=== PATIENT | female | born 1980 | race Hispanic/Latino ===

== ENCOUNTER → 2022-08-06 | Day surgery (SDC) | payer OTHER ==
[2022-08-04 09:14] LABS: BASOPHILS # (AUTO) 0.1 (0.0-0.1); BASOPHILS % 0.9 % (0.0-1.0); EOSINOPHILS # (AUTO) 0.2 (0.0-0.4); HEMOGLOBIN 9.3 g/dL (12.0-16.0); LYMPHOCYTES # (AUTO) 1.6 (1.0-3.2); LYMPHOCYTES % 27.6 % (18.0-39.1); MEAN CORPUSCULAR HEMOGLOBIN 21.7 pg (28-32); MEAN CORPUSCULAR HGB CONC 28.2 g/dL (31-35); MEAN CORPUSCULAR VOLUME 76.9 fL (81-99); MONOCYTES # (AUTO) 0.4 (0.2-0.8); MONOCYTES % 6.5 % (4.4-11.3); NEUTROPHILS # (AUTO) 3.5 (2.1-6.9); NEUTROPHILS % 60.7 % (38.7-80.0); PLATELET COUNT 233 x10e3/uL (140-360); RED BLOOD COUNT 4.29 x10e6/uL (3.6-5.1); RED CELL DISTRIBUTION WIDTH 15.2 % (11.7-14.4)
[2022-08-04 09:30] LABS: ANION GAP 13.1 mmol/L (8-16); CALCIUM 9.1 mg/dL (8.4-10.2); CREATININE, SERUM 0.64 mg/dL (0.57-1.11); POTASSIUM 4.1 mmol/L (3.5-5.1)
[~2022-08-06] MED LIST: ATROPINE SULFATE 1 MG/ML VIAL ONE; BUPIVACAINE 0.25% 30ML SDV ONE; DEXAMETHASONE SOD PHOS INJ 4 MG/ML SDV ONE; FENTANYL CITRATE/PF 100MCG/2 ML INJ ONE; GLYCOPYRROLATE INJ 0.2 MG/ML VIAL ONE; KETAMINE HCL INJ 50 MG/ML 10 ML VIAL ONE; LIDOCAINE HCL 2% LOCAL INJ 5 ML SDV VIAL INJ ONE; LIDOCAINE HCL/EPINEPHRINE/PF 10 ML VIAL ONE; MIDAZOLAM HCL 2 MG/2 ML VIAL ONE; MULTI-VITAMIN1 EACH PO; ONDANSETRON HCL INJ 2MG/ML 2ML 2 MG/ML VIAL ONE; POVIDONE IODINE 0.05% 0.05 % ML PO ONE; PROPOFOL IV EMULSION 10 MG/ML 20 ML VIAL ONE; PROPOFOL IV EMULSION 50 ML IV ONE; ROCURONIUM BROMIDE 10 MG/ML 5ML VIAL IV ONE; SEVOFLURANE INHAL SOLN 250 ML PEN BTL ONE
[2022-08-06 10:55] VITALS: BP 133/65
== END | disposition home or self-care (01) ==
LOC: OR 07:48
PROVIDERS: ATTEND Surgery
DX: K40.90 Unilateral inguinal hernia, without obstruction or gangrene, not specified as recurrent (principal); D17.79 Benign lipomatous neoplasm of other sites; Z01.810 Encounter for preprocedural cardiovascular examination; Z01.812 Encounter for preprocedural laboratory examination
CPT/HCPCS: 36415; 49505; 80048; 81025; 85025; 88302; 93005; C1781; J0461; J1100; J2001; J2250; J2405; J2704 ×2; J3010

== ENCOUNTER 2025-06-06 15:20 | Inpatient (IN) | payer OTHER ==
[~2025-06-06] VITALS: Ht 154.9 cm; Wt 83.9 kg
[2025-06-06] VITALS (9 sets, daily range): BP systolic 112–148; BP diastolic 67–86; PULSE 63–85; RESP 16–19; TEMP 97.9–98.9; O2SAT 100
[~2025-06-06 15:20] MED LIST changes: -ATROPINE SULFATE 1 MG/ML VIAL ONE; -BUPIVACAINE 0.25% 30ML SDV ONE; -DEXAMETHASONE SOD PHOS INJ 4 MG/ML SDV ONE; -FENTANYL CITRATE/PF 100MCG/2 ML INJ ONE; -GLYCOPYRROLATE INJ 0.2 MG/ML VIAL ONE; -KETAMINE HCL INJ 50 MG/ML 10 ML VIAL ONE; -LIDOCAINE HCL 2% LOCAL INJ 5 ML SDV VIAL INJ ONE; -LIDOCAINE HCL/EPINEPHRINE/PF 10 ML VIAL ONE; -MIDAZOLAM HCL 2 MG/2 ML VIAL ONE; -ONDANSETRON HCL INJ 2MG/ML 2ML 2 MG/ML VIAL ONE; -POVIDONE IODINE 0.05% 0.05 % ML PO ONE; -PROPOFOL IV EMULSION 10 MG/ML 20 ML VIAL ONE; -PROPOFOL IV EMULSION 50 ML IV ONE; -ROCURONIUM BROMIDE 10 MG/ML 5ML VIAL IV ONE; -SEVOFLURANE INHAL SOLN 250 ML PEN BTL ONE
[2025-06-06 16:22] LABS: BASOPHILS % 0.7 % (0.0-1.0); EOSINOPHILS % 3.1 % (0.0-6.0); LYMPHOCYTES % 20.4 % (18.0-39.1); MONOCYTES % 5.8 % (4.4-11.3); NEUTROPHILS % 69.7 % (38.7-80.0); RED CELL DISTRIBUTION WIDTH 20.4 % (11.7-14.4)
[2025-06-06 16:40] LABS: EST GLOMERULAR FILTRATION RATE 112.0 ML/MIN (>=60)
[2025-06-06] MEDS ORDERED: ONDANSETRON HCL INJ 2MG/ML 2ML 2 MG/ML VIAL IV PRN (17:00)
[2025-06-06] MEDS ORDERED: SODIUM CHLORIDE FLUSH 10 ML SYR INJ PRN (17:00)
[2025-06-06] MEDS ORDERED: DEXTROSE 50% SYRINGE 50 ML IV PRN (17:30)
[2025-06-06] MEDS ORDERED: DIPHENHYDRAMINE HCL 25 MG CAP PO PRN (17:30)
[2025-06-06] MEDS ORDERED: ACETAMINOPHEN 325 MG TAB PO PRN (17:30)
[2025-06-06] MEDS ORDERED: BENZONATATE 100 MG CAP PO PRN (17:30)
[2025-06-06] MEDS ORDERED: SIMETHICONE 80 MG CHEW PO PRN (17:30)
[2025-06-06] MEDS ORDERED: ALBUTEROL/IPRATROPIUM 3 ML NEB NEB PRN (17:30)
[2025-06-06] MEDS ORDERED: HYDRALAZINE HCL 20 MG/ML VIAL IV PRN (17:30)
[2025-06-06] MEDS ORDERED: POTASSIUM CHLORIDE 20 MEQ TAB CR PO PRN (17:30)
[2025-06-06] MEDS ORDERED: DOCUSATE SODIUM 100 MG CAP PO PRN (17:30)
[2025-06-06] MEDS ORDERED: LIDOCAINE 4% PATCH TP PRN (17:30)
[2025-06-06] MEDS ORDERED: MELATONIN 5 MG TABLET PO PRN (17:30)
[2025-06-06 18:05] LABS: % IRON SATURATION 2 % (15-50)
[2025-06-06] MEDS: SODIUM CHLORIDE 0.9% 250ML 250 ML IV ONE (18:29)
[2025-06-06] MEDS ORDERED: SODIUM CHLORIDE 0.9% 250ML 250 ML ONE (20:14)
[2025-06-06] MEDS ORDERED: HYOSCYAMINE SULFATE 0.5 MG/ML INJ ONE (23:15)
[2025-06-06] MEDS: BISACODYL 5 MG TAB EC PO ONE (23:38)
[2025-06-07] VITALS (20 sets, daily range): BP systolic 104–153; BP diastolic 65–92; PULSE 61–81; RESP 16–18; TEMP 97.6–98.9; O2SAT 98–100
[2025-06-07] MEDS: BISACODYL 5 MG TAB EC PO ONE (00:11)
[2025-06-07] MEDS ORDERED: SODIUM CHLORIDE 0.9% 250ML 250 ML ONE (01:02)
[2025-06-07] MEDS: CITRATE OF MAGNESIA 300ML BOTTLE PO ONE ×2 (05:08→07:46)
[2025-06-07 05:28] LABS: BASOPHILS % 1.0 % (0.0-1.0); EOSINOPHILS % 4.0 % (0.0-6.0); LYMPHOCYTES % 21.9 % (18.0-39.1); MONOCYTES % 7.4 % (4.4-11.3); NEUTROPHILS % 65.4 % (38.7-80.0); RED CELL DISTRIBUTION WIDTH 24.7 % (11.7-14.4)
[2025-06-07 05:58] LABS: EST GLOMERULAR FILTRATION RATE 113.0 ML/MIN (>=60)
[2025-06-07 06:14] LABS: % IRON SATURATION 7.0 % (15-50)
[2025-06-07] MEDS: PANTOPRAZOLE SOD 40 MG TABEC PO SCH (06:52)
[2025-06-07 08:49] LABS: PLATELET ESTIMATE ADEQUATE; RBC MORPHOLOGY COMMENT NORMAL
[2025-06-07 08:50] LABS: PLATELET MORPHOLOGY COMMENT FEW GIANT
[2025-06-07] MEDS ORDERED: IRON SUCROSE 300 MG in SODIUM CHLORIDE 0.9% 100 ML IV SCH (09:00)
[2025-06-07] MEDS ORDERED: IRON SUCROSE 100 MG in SODIUM CHLORIDE 0.9% 100 ML IV SCH (09:00)
[2025-06-07] MEDS: IRON SUCROSE 300 MG in SODIUM CHLORIDE 0.9% 250ML 250 ML IV SCH (10:54)
[2025-06-07] MEDS ORDERED: LIDOCAINE HCL 2% LOCAL INJ 5 ML SDV VIAL INJ ONE (14:15)
[2025-06-07] MEDS ORDERED: PROPOFOL IV EMULSION 50 ML IV ONE (14:15)
[2025-06-07] MEDS ORDERED: IOPAMIDOL 370 MG/ML 100 ML INFUS..BTL INJ ONE (19:07)
[2025-06-07] MEDS ORDERED: CITRATE OF MAGNESIA 300ML BOTTLE PO ONE (23:45)
[2025-06-08 03:27] VITALS: BP 98/66; PULSE 60; RESP 18; TEMP 98.1; O2SAT 98
[2025-06-08 06:54] LABS: BASOPHILS % 0.9 % (0.0-1.0); EOSINOPHILS % 3.6 % (0.0-6.0); LYMPHOCYTES % 16.4 % (18.0-39.1); MONOCYTES % 6.3 % (4.4-11.3); NEUTROPHILS % 72.3 % (38.7-80.0); RED CELL DISTRIBUTION WIDTH 24.4 % (11.7-14.4)
[2025-06-08 07:19] LABS: EST GLOMERULAR FILTRATION RATE 111.0 ML/MIN (>=60)
[2025-06-08 07:45] VITALS: PULSE 72; RESP 18; O2SAT 96
[2025-06-08 08:36] VITALS: BP 113/69; PULSE 64; RESP 19; TEMP 98.4; O2SAT 100
[2025-06-08 10:29] VITALS: BP 113/69; PULSE 64; RESP 19; TEMP 98.4; O2SAT 100
[2025-06-08 12:26] VITALS: BP 127/79; PULSE 61; RESP 18; TEMP 98.2; O2SAT 99
[2025-06-08 13:35] VITALS: PULSE 74; RESP 18; O2SAT 97
== END 2025-06-08 15:12 | disposition home or self-care (01) | DRG 812 ==
LOC: ER 15:50 → ERHOLD 16:53 → MED/SURG2 18:32 → OBSVTOIN 06-08 09:54
PROVIDERS: ADMIT Internal Medicine; ATTEND Internal Medicine
PROC: 30233N1 Transfusion of Nonautologous Red Blood Cells into Peripheral Vein, Percutaneous Approach (ICD-10-PCS; principal; 2025-06-06)
PROC: 0DBL8ZZ Excision of Transverse Colon, Via Natural or Artificial Opening Endoscopic (ICD-10-PCS; 2025-06-07)
PROC: 0DB78ZX Excision of Stomach, Pylorus, Via Natural or Artificial Opening Endoscopic, Diagnostic (ICD-10-PCS; 2025-06-07 14:03)
PROC: 0D738ZZ Dilation of Lower Esophagus, Via Natural or Artificial Opening Endoscopic (ICD-10-PCS; 2025-06-07 14:03)
PROC: 0DB98ZX Excision of Duodenum, Via Natural or Artificial Opening Endoscopic, Diagnostic (ICD-10-PCS; 2025-06-07 14:03)
DX: D50.9 Iron deficiency anemia, unspecified (principal); K56.609 Unspecified intestinal obstruction, unspecified as to partial versus complete obstruction; K64.8 Other hemorrhoids; K57.30 Diverticulosis of large intestine without perforation or abscess without bleeding; K20.90 Esophagitis, unspecified without bleeding; K29.50 Unspecified chronic gastritis without bleeding; K31.9 Disease of stomach and duodenum, unspecified; B96.81 Helicobacter pylori [H. pylori] as the cause of diseases classified elsewhere; D12.3 Benign neoplasm of transverse colon; R53.1 Weakness; R53.83 Other fatigue
CPT/HCPCS: 36415; 43239; 43450; 45378; 45385; 74177; 80048; 80053; 82607; 82728; 82746; 83540; 84443; 84466; 84702; 85025; 85045; 86850; 86900; 86920; 88305; 94799; 99252; 99284; G0378; J1756; J1980; J2003; J2470; J7050; P9016; Q9967